=== PATIENT | female | born 1945 | race Caucasian/White ===

== ENCOUNTER → 2019-07-01 10:45 | Outpatient (CLI) | payer MEDICARE, OTHER ==
--- NOTE | 2019-07-08 08:48 | EC ---
PATIENT:JUAN A BARKSDALE DATE OF SERVICE: 07/01/19 SEX: F MEDICAL RECORD: [id number] DATE OF : 49 LOCATION:D.FORMERLY [facility] AGE OF PATIENT: 74 ADMISSION DATE: 07/01/19 REFERRING PHYSICIAN: INTERPRETING PHYSICIAN: DAO BRAR MD ECHOCARDIOGRAM REPORT ECHO CHARGES 4 ECHO COMPLETE Date: 07/01/19 CLINICAL DIAGNOSIS: AORTIC STENOSIS ECHOCARDIOGRAPHIC MEASUREMENTS (adult normal given) AC root (d.<3.7cm) 4.2 cm LV Septum d (<1.2 cm> 1.5 cm Valve Excursion 1.8 cm LV Septum (systole) 1.6 cm Left Atria (s.<4.0cm> 4.3 cm LVPW d(<1.2cm) 1.5 cm RV (d.<2.3cm) 3.2 cm LVPW (sytole) 1.8 cm LV diastole(<5.6CM) 4.3 cm MV E-F(>70mm/sec) cm LV systole 2.2 cm LVOT Diameter 1.6 cm MV exc.(>10mm) 1.0 cm Est.ejection fraction (50-75%) % DOPPLER: LVIT cm/sec A 97.0 cm/sec E 112 cm/sec LA cm/sec RVSP 25 mmHg LVOT 114 cm/sec AOP1/2T m/s Asc. Ao 137 cm/sec RVOT 84 cm/sec RA cm/sec PA 114 cm/sec AV Gradient Peak 7.52 mmHg AV Mean 3.85 mmHg AV Area 3.0 cm MV Gradient Peak 6.02 mmHg MV Mean 1.92 mmHg MV Area cm COMMENTS: Web Site Developer: 2 RADHA FLOR Sugar Refiner: 3 Dr. Flower TAPE# PACS Pericardial Effusion N DATE OF SERVICE: Adequate 2D, color flow, spectral Doppler, and M-mode. No LVH. LV internal dimension is normal. Wall motion is normal. EF is greater than or equal to 55%. Aortic valve sclerosis without stenosis by Doppler interrogation. Left atrium mildly dilated at 4.3 cm. Mitral valve shows no prolapse. Trace MR. Right-sided chambers are grossly normal. Trace TR. TRANSINT:[id number] Voice Confirmation ID: [id number] DOCUMENT ID: [id number] ECHOCARDIOGRAM REPORT [id number] JUAN A BARKSDALE DAO BRAR MD at 0848 CC: [id number] DICTATION DATE: 07/03/19 1545 COMPUTER ANIMATOR: 07/03/19 1830 DEP CLI 07/01/19 [id number] [place] [address]
== END | disposition home or self-care (01) ==
LOC: D.HCCECHO 06-06 11:30
PROVIDERS: ATTEND Internal Medicine Interventional Cardiology
DX: I35.0 Nonrheumatic aortic (valve) stenosis (principal)